=== PATIENT | male | born 1945 | race African-American/Black ===

== ENCOUNTER 2022-11-05 13:19 | Outpatient (CLI) | payer MEDICARE | END 2022-11-05 13:20 | disposition home or self-care (01) | LOC: CSHWCC 13:19 | PROVIDERS: ATTEND Nurse Practitioner Family | DX: L89.613 Pressure ulcer of right heel, stage 3 (principal); L98.493 Non-pressure chronic ulcer of skin of other sites with necrosis of muscle; L97.411 Non-pressure chronic ulcer of right heel and midfoot limited to breakdown of skin | CPT/HCPCS: 97139; G0463; 99214 ==

== ENCOUNTER 2023-03-26 09:03 | Outpatient (CLI) | payer MEDICARE | END 2023-03-26 09:04 | disposition home or self-care (01) | LOC: CSHWCC 09:03 | PROVIDERS: ATTEND Nurse Practitioner Family | DX: L98.492 Non-pressure chronic ulcer of skin of other sites with fat layer exposed (principal) | CPT/HCPCS: 17250; 97139; G0463; 99212 ==